=== PATIENT | male | born 1990 | race Two or more races ===

== ENCOUNTER 2017-02-01 03:12 | Emergency (ER) | payer BC ==
[~2017-02-01] VITALS: Ht 188 cm; Wt 66.2 kg
[~2017-02-01 03:12] MED LIST: LEV500PM IV; ULTRAM50 MG PO
[2017-02-01 04:29] LABS: CALCIUM 8.9 mg/dL (8.5-10.1); CARBON DIOXIDE 24.7 mmol/L (21-32); CHLORIDE SERUM 105 mmol/L (98-107); GFR1 > 60 mL/min; GLUCOSE SERUM 125 mg/dL (74-106); POTASSIUM SERUM 3.6 mmol/L (3.5-5.1); SODIUM SERUM 140 mmol/L (136-145)
[2017-02-01 04:33] LABS: ALBUMIN 4.2 g/dL (3.4-5.0); ALKALINE PHOSPHATASE 87 U/L (46-116); ALT/SGPT 19 U/L (16-63); AST/SGOT 14 U/L (15-37); BILIRUBIN TOTAL 1.36 mg/dL (0.20-1.00); LIPASE 101 IU/L (73-393); TOTAL PROTEIN, SERUM 7.3 g/dL (6.4-8.2)
[2017-02-01 05:30] VITALS: BP 105/70
== END 2017-02-01 05:30 | disposition home or self-care (01) ==
LOC: ED 03:12
PROVIDERS: Emergency Medicine
DX: R11.10 Vomiting, unspecified (principal); R19.7 Diarrhea, unspecified
CPT/HCPCS: J2405; J7030